=== PATIENT | male | born 1980 | race African-American/Black ===

== ENCOUNTER 2016-11-16 22:07 | Inpatient (IN) | payer MEDICARE, OTHER ==
[~2016-11-16] VITALS: Ht 185.4 cm; Wt 56.2 kg
--- NOTE | ~2016-11-16 | PN ---
Unit #: [id number] #: [id number] Patient: NATALIA KHAN [id number] [facility] [address] [place] [address] [id number] I MR#: [id number] NAME: NATALIA KHAN ROOM: 30 Age: 36 Sex: M Admission Date: 11/17/2016 : 1980 Attending Physician: Ammy Damon M.D. Admitting Physician: Ammy Damon M.D. Primary Care Physician: Primary Care Physician Heather RODGERS NOTES DATE OF SERVICE: 12/07/2016 SUBJECTIVE Mr. Khan is a 36-year-old male, who was seen today and chart was reviewed and case was discussed with the staff. He has been anxious, withdrawn, disorganized, paranoid, delusional, and seclusive to himself, though has not shown any agitation or aggression. He has been taking medications and tolerating them fairly well with no reported side effects. MENTAL STATUS EXAMINATION Young male who was casually dressed with fair personal hygiene, appears to be in no acute distress or discomfort. He was awake and alert with impaired attention and concentration. His mood was anxious with a congruent affect. His speech was slow and restricted in content. His thought processes were disorganized with some looseness of associations. His insight and judgment remain significantly impaired. TREATMENT PLAN 1. We will continue on his current medications and treatment protocol. We will monitor his response to the medication and make further adjustments as needed. 2. We will continue to follow up. Dictated by... Edmar Vega/nerissa TD: 12/07/2016 08:02 JOB #: [id number] Unit #: [id number] #: [id number] Patient: NATALIA KHAN PEARONAN PROGRESS NOTES Page 1 of 1 X Ammy Damon MD PROGRESS NOTE
--- NOTE | ~2016-11-16 | PN ---
Unit #: [id number] #: [id number] Patient: NATALIA KHAN [id number] [facility] [address] [place] [address] [id number] I MR#: [id number] NAME: NATALIA KHAN ROOM: [facility] Age: 36 Sex: M Admission Date: 11/17/2016 : 1980 Attending Physician: Ammy Damon M.D. Admitting Physician: Ammy Damon M.D. Primary Care Physician: Primary Care Physician Heather SCHMIDT PROGRESS NOTES DATE November 23, 2016 DISCUSSION Mr. Khan is a 36-year-old male, who was seen today and chart was reviewed and the case was discussed with the staff. He has been anxious, withdrawn, but has not shown any agitation, irritability, or behavioral problems and has been cooperative with the treatment recommendations and he has been taking the medications and tolerating them fairly well. MENTAL STATUS EXAMINATION Young male, who was casually dressed with fair personal hygiene and appears to be in no acute distress or discomfort. He was awake and alert with intact orientation. His mood is anxious with a congruent affect. He denies any suicidal or homicidal ideations. His insight and judgment remain slightly impaired. TREATMENT PLAN 1. We will continue him on his current medications and treatment protocol, and will monitor his response to the medications, and make further adjustments as needed. 2. We will continue to followup. Dictated by... Edmar Vega/ricco TD: 11/24/2016 11:29 JOB #: [id number] Unit #: [id number] #: [id number] Patient: NATALIA KHAN PEARONAN PROGRESS NOTES Page 1 of 1 X Ammy Damon MD PROGRESS NOTE
--- NOTE | ~2016-11-16 | PN ---
Unit #: [id number] #: [id number] Patient: NATALIA KHAN [id number] [facility] [address] [place] [address] [id number] MR#: [id number] NAME: NATALIA KHAN ROOM: [facility] Age: 36 Sex: M Admission Date: 11/17/2016 : 1980 Attending Physician: Ammy Damon M.D. Admitting Physician: Ammy Damon M.D. Primary Care Physician: Primary Care Physician Heather SCHMIDT PROGRESS NOTES DATE 12/02/2016 DISCUSSION Ms. Khan is a 36-year-old male who was seen today and chart was reviewed and case was discussed with the staff. He has been anxious, restless, withdrawn, rather disorganized though has not shown any agitation or aggression. He has been taking medications and tolerating them fairly well with no reported side effects. MENTAL STATUS EXAMINATION Young male who was casually dressed with fair personal hygiene and appears to be in no acute distress or discomfort. He was awake and alert with impaired attention and concentration. His mood was anxious with congruent affect. His speech is slow and tangential. His thought processes were disorganized with some looseness of associations and flight of ideas. His insight and judgement remains significantly impaired. TREATMENT PLAN 1. Will continue on his current medications and treatment protocol. Will monitor his response to the medications and make further adjustments as needed. 2. Will continue to follow up. Dictated by... Edmar Vega/noemi TD: 12/02/2016 21:28 JOB #: [id number] Unit #: [id number] #: [id number] Patient: NATALIA KHAN PEARONAN PROGRESS NOTES Page 1 of 1 X Ammy Damon MD PROGRESS NOTE
--- NOTE | ~2016-11-16 | PN ---
Unit #: [id number] #: [id number] Patient: NATALIA KHAN [id number] [facility] [address] [place] [address] [id number] I MR#: [id number] NAME: NATALIA KHAN ROOM: P130 Age: 36 Sex: M Admission Date: 11/17/2016 : 1980 Attending Physician: Ammy Damon M.D. Admitting Physician: Ammy Damon M.D. Primary Care Physician: Primary Care Physician Heather SCHMIDT PROGRESS NOTES DATE 12/08/2016 DISCUSSION Mr. Khan is a 36-year-old male who was seen today and chart was reviewed and case was discussed with the staff. He has been anxious, withdrawn and rather seclusive to himself. Meanwhile, he has been cooperative with treatment recommendations and has been taking medications and tolerating them fairly well with no reported side effects. MENTAL STATUS EXAMINATION Young male who was casually dressed with fair personal hygiene and appears to be in no acute distress or discomfort. He was awake and alert with impaired attention and concentration. His mood was anxious with congruent affect. Speech is slow and restricted in content. His thought processes were disorganized with some looseness of associations. His insight and judgement remains significantly impaired. TREATMENT PLAN 1. Will continue him on his current medications and treatment protocol. Will monitor his response to the medications and make further adjustments as needed. 2. Will continue to follow up. Dictated by... Edmar Vega/noemi TD: 12/08/2016 15:21 JOB #: [id number] Unit #: [id number] #: [id number] Patient: NATALIA KHAN PROGRESS NOTES Page 1 of 1 X Ammy Damon MD PROGRESS NOTE
--- NOTE | ~2016-11-16 | PN ---
Unit #: [id number] #: [id number] Patient: NATALIA KHAN [id number] [facility] [address] [place] [address] [id number] I MR#: [id number] NAME: NATALIA KHAN ROOM: [facility] Age: 36 Sex: M Admission Date: 11/17/2016 : 1980 Attending Physician: Ammy Damon M.D. Admitting Physician: Ammy Damon M.D. Primary Care Physician: Primary Care Physician Heather RODGERS NOTES DATE OF SERVICE: 11/18/2016 SUBJECTIVE Mr. Khan is a 36-year-old male with mood disorder and psychosis, who was seen today and chart was reviewed and case was discussed with the staff. He has been anxious, withdrawn, though has not shown any agitation, irritability, and he has been cooperative with treatment recommendation and has been taking medications and tolerating them fairly well with no reported side effects. MENTAL STATUS EXAMINATION Young male who was casually dressed with fair personal hygiene, appears to be in no acute distress or discomfort. He was awake and alert with impaired attention and concentration. His mood was anxious with a congruent affect. His speech was slow and restricted in content. His thought processes were disorganized with some looseness of association. His insight and judgment remain significantly impaired. TREATMENT PLAN 1. We will continue on his current medications and treatment protocol. We will monitor his response to medications and make further adjustments as needed. 2. We will continue to follow up. Dictated by... Edmar Vega/nerissa TD: 11/18/2016 23:48 JOB #: [id number] Unit #: [id number] #: [id number] Patient: NATALIA KHAN PEARONAN PROGRESS NOTES Page 1 of 1 X Ammy Damon MD PROGRESS NOTE
--- NOTE | ~2016-11-16 | PN ---
Unit #: [id number] #: [id number] Patient: NATALIA KHAN [id number] [facility] [address] [place] [address] [id number] I MR#: [id number] NAME: NATALIA KHAN ROOM: [facility] Age: 36 Sex: M Admission Date: 11/17/2016 : 1980 Attending Physician: Ammy Damon M.D. Admitting Physician: Ammy Damon M.D. Primary Care Physician: Primary Care Physician Heather SCHMIDT PROGRESS NOTES DATE November 22, 2016 DISCUSSION Mr. Khan is a 36-year-old male, who was seen today and chart was reviewed and the case was discussed with the staff. He has been anxious, withdrawn, and rather seclusive to himself. He appears to be quite disorganized and unable to carry on a meaningful conversation; however, he has not shown any agitation or aggression and he has been taking the medications and tolerating them fairly well with no reported side effects. MENTAL STATUS EXAMINATION Young male, who was casually dressed with fair personal hygiene and appears to be in no acute distress or discomfort. He was awake and alert with impaired attention and concentration. His mood is anxious with a congruent affect. He denies any suicidal or homicidal ideations. His insight and judgment remain slightly impaired. TREATMENT PLAN 1. We will continue him on his current medications and treatment protocol, and will monitor his response to the medications, and make further adjustments as needed. 2. We will continue to followup. Dictated by... Edmar Vega/ricco TD: 11/23/2016 09:42 JOB #: [id number] Unit #: [id number] #: [id number] Patient: NATALIA KHAN BRAYAN PROGRESS NOTES Page 1 of 1 X Ammy Damon MD PROGRESS NOTE
--- NOTE | ~2016-11-16 | PN ---
Unit #: [id number] #: [id number] Patient: NATALIA KHAN [id number] [facility] [address] [place] [address] [id number] I MR#: [id number] NAME: NATALIA KHAN ROOM: [facility] Age: 36 Sex: M Admission Date: 11/17/2016 : 1980 Attending Physician: Ammy Damon M.D. Admitting Physician: Ammy Damon M.D. Primary Care Physician: Primary Care Physician Heather SCHMIDT PROGRESS NOTES DATE 11/29/2016 DISCUSSION Mr. Khan is a 36-year-old, male who was seen today and chart was reviewed and case was discussed with the staff. He has been anxious, withdrawn, disorganized and rather seclusive to himself with bizarre behavior. Meanwhile, he has been cooperative with the treatment recommendations. He has been taking the medication and tolerating them fairly well with no reported side effects. MENTAL STATUS EXAM Young male who was casually dressed with fair personal hygiene, appears to be in no acute distress or discomfort. He was awake and alert with impaired attention and concentration. His mood was anxious with congruent affect. His speech was slow and tangential. His thought processes were disorganized with some looseness of associations. His insight and judgement remains significantly impaired. TREATMENT PLAN 1. We will continue him on his current medications and treatment protocol. We will monitor his response to the medication and make further adjustments as needed. 2. We will continue to follow up. Dictated by... Edmar Vega/cj TD: 11/30/2016 04:25 JOB #: [id number] Unit #: [id number] #: [id number] Patient: NATALIA KHAN BRAYAN PROGRESS NOTES Page 1 of 1 X Ammy Damon MD PROGRESS NOTE
--- NOTE | ~2016-11-16 | FU ---
[facility] Nutrition Therapy DATE: 11/29/16 Patient: NATALIA BANKS Physician: AFAIRF Address: [address] [place] [address] RD Room/Bed: [address], Zip: [place] [address] Admit Date: 11/17/16 Date of : [birth year] Height: 6 1 Weight: [phone] NUTRITION MONITORING/FOLLOW-UP: Reason: Nutrition follow-up Admitting dx: 36 y/o male admitted with schizophrenia Anthropometrics: no updated weight available Labs: No new labs Meds: Reviewed Assessment: Chart reviewed, events noted. patient has increased nutrient needs r/t underweight status, no updated weight recorded despite RD request at last f/u for new weight documentation. Patient is tolerating regular diet with Ensure ordered at each meal. Has had consistently good appetite and PO intakes per nursing. Sometimes has issues with asking multiple staff members for food and snacks multiple different times requiring redirection. He is already receiving pudding and banana for snacks and large portion entree with lunch & dinner. See nutrition goals and dx below, nutrition dx resolved. No further RD interventions necessary. Dx: Inadequate nutrient intake r/t clinical condition AEB weight loss, low BMI - RESOLVED No new nutrition diagnosis Intervention: No further interventions necessary, see above Monitoring, Evaluation and Goals: 1. PO intake > 50% of meals - MET 2. Maintain weight status - UNMEASURED Recommendations: Continue current dietary regimen and oral supplements, appreciate staff to encourage oral intake. Please obtain updated weight and enter in [employer] for monitoring purposes. Please notify RD if weight is trending down and consult with any further nutritional needs. Status: Mild nutrition risk Respectfully, [facility] Nutrition Therapy DATE: 11/29/16 Patient: NATALIA BANKS Physician: AFAIRF Address: [address] [place] [address] RD Room/Bed: [address], Zip: [place] [address] Admit Date: 11/17/16 Date of : [birth year] Height: 6 1 Weight: [phone] Ksuum Patel, CLEMENT, LD [facility] cc: client file
--- NOTE | ~2016-11-16 | PN ---
Unit #: [id number] #: [id number] Patient: NATALIA BANKS [id number] [facility] [address] [place] [address] [id number] I MR#: [id number] NAME: NATALIA BANKS ROOM: 30 Age: 37 Sex: M Admission Date: 11/17/2016 : 1980 Attending Physician: Ammy Damon M.D. Admitting Physician: Ammy Damon M.D. Primary Care Physician: Primary Care Physician Heather SCHMIDT PROGRESS NOTES DATE 11/27/2016 DISCUSSION Mr. Devine is a 36-year-old, male who was seen today and chart was reviewed and case was discussed with the staff. He has been anxious, withdrawn and rather seclusive to himself. Meanwhile, he has been cooperative with treatment recommendation. He has been taking the medication and tolerating them fairly well with no reported side effects. MENTAL STATUS EXAM Young male who was casually dressed with fair personal hygiene, appears to be in no acute distress or discomfort. He was awake and alert with impaired attention and concentration. His mood was anxious with congruent affect. His speech was slow and restricted in content. His thought processes were disorganized with some looseness of associations and flight of ideas. His insight and judgement remains significantly impaired. TREATMENT PLAN 1. We will continue him on his current medications and treatment protocol. We will monitor his response to the medication and make further adjustments as needed. 2. We will continue to follow up. Dictated by... Edmar Vega/cj TD: 11/28/2016 03:18 JOB #: [id number] Unit #: [id number] #: [id number] Patient: NATALIA BANKS PEARONAN PROGRESS NOTES Page 1 of 1 X Ammy Damon MD PROGRESS NOTE
--- NOTE | ~2016-11-16 | PN ---
Unit #: [id number] #: [id number] Patient: NATALIA KHAN [id number] [facility] [address] [place] [address] [id number] I MR#: [id number] NAME: NATALIA KHAN ROOM: [facility] Age: 36 Sex: M Admission Date: 11/17/2016 : 1980 Attending Physician: Ammy Damon M.D. Admitting Physician: Ammy Damon M.D. Primary Care Physician: Primary Care Physician Heather SCHMIDT PROGRESS NOTES DATE November 26, 2016 DISCUSSION Mr. Khan is a 36-year-old male, who was seen today and chart was reviewed and the case was discussed with the staff. He has been anxious, withdrawn, disorganized, and rather seclusive to himself. Meanwhile, he has been cooperative with the treatment recommendations and he has been taking the medications and tolerating them fairly well with no reported side effects. MENTAL STATUS EXAMINATION Young white male, who was casually dressed with fair personal hygiene and appears to be in no acute distress or discomfort. He was awake and alert with impaired attention and concentration. His mood is anxious with a congruent affect. His speech is slow and restricted in content. His thought processes are disorganized with some looseness of associations. His insight and judgment remain significantly impaired. TREATMENT PLAN 1. We will continue him on his current medications and treatment protocol, and will monitor his response to the medications, and make further adjustments as needed. 2. We will continue to followup. Dictated by... Edmar Vega/ricco TD: 11/26/2016 10:30 JOB #: [id number] Unit #: [id number] #: [id number] Patient: NATALIA KHAN PROGRESS NOTES Page 1 of 1 X Ammy Damon MD PROGRESS NOTE
--- NOTE | ~2016-11-16 | A ---
[facility] Nutrition Therapy DATE: 11/17/16 Patient: NATALIA BANKS Physician: ZORAIDA Address: [address] [place] [address] Room/Bed: [address], Zip: [place] [address] Admit Date: 11/17/16 Date of : [birth year] Height: 6 1 Weight: 123 56.726655 NUTRITIONAL ASSESSMENT: REASON: LOW BMI (16.4) PATIENT ADMITTED FOR PSYCHOSIS, A/V HALLUCINATIONS, HI, AND DELUSIONS PMH: TRAUMATIC BRAIN INJURY, CONTRACTED EXTREMITIES Anthropometrics: HT: 6'1", WT: 124#, BMI: 16.4 Labs: 11/17/16- NUTRITION LABS WNL Meds: MARGY, RAN, LAISHA Assessment: PATIENT IS A 36 Y/O MALE ADMITTED FOR PSYCHOSIS, A/V HALLUCINATIONS, HI, AND DELUSIONS. PATIENT IS DISABLED, LIVES WITH HIS MOTHER AND SISTER, AND DENIES ANY SUBSTANCE ABUSE. IT IS NOTED THAT PATIENT IS HARD TO UNDERSTAND, HAS MEMORY PROBLEMS, AND IS A POOR HISTORIAN. PER NEEDS ASSESSMENT PATIENT AND HIS MOTHER STATED A POOR APPETITE WITH A 40# WEIGHT LOSS OVER LAST SEVERAL MONTHS WITH HIS WEIGHT DROPPING FROM 160# TO 120# D/T NOT EATING. PATIENT BELIEVES HE HAS A TAPE WORM AND THAT PEOPLE ARE SPITTING IN HIS FOOD OR POISONING IT. THERE ARE NO GI OR SKIN ISSUES NOTED ATT. PATIENT IS ON A REGULAR DIET WITH ENSURE TID, LARGE PORTION ENTREES, AND HE RECEIVES SEALED FOOD ITEMS ON HIS TRAY (I.E. A BANANA, PUDDING, CHIPS). CURRENT MEDICATIONS MAY CAUSE WEIGHT GAIN, WHICH IS DESIRED. Dx: INADEQUATE NUTRIENT INTAKE R/T CURRENT CONDITION AEB WEIGHT LOSS, DECREASED APPETITE, LOW BMI, REFUSAL TO EAT Intervention: REGULAR DIET, SUPPLEMENTATION, MEDS PER MD, PSYCH Monitoring, Evaluation and Goals: 1. ADEQUATE PO INTAKES >50% OF MEALS 2. PREVENT, CORRECT MICRO/MACRO NUTRIENT DEFICIENCIES 3. WEIGHT; PROMOTE A STEADY WEIGHT GAIN TOWARDS A HEALTHY BMI OF 19-25, PREVENT FURTHER WEIGHT LOSS MONITOR: WEIGHTS, LABS, PO/FLUID INTAKES Recommendations: 1. CONTINUE REGULAR DIET WITH LARGE ENTREES AND ENSURE TID TOLERATED. OFFER SNACKS BETWEEN MEALS AND PRE-PACKAGED FOOD ITEMS D/T CURRENT PSYCHOSIS AND NEED FOR WEIGHT GAIN. PATIENT ADMITTED TODAY SO CURRENT PO INTAKES ARE UNKNOWN AND IT IS UNCLEAR IF PATIENT WILL [facility] Nutrition Therapy DATE: 11/17/16 Patient: NATALIA DARREN Physician: ZORAIDA Address: [facility] Room/Bed: P131-1 [facility], Zip: [place] [address] Admit Date: 11/17/16 Date of : [birth year] Height: 6 1 Weight: 123 56.787946 DRINK ENSURE. 2. ENCOURAGE ADEQUATE PO AND FLUID INTAKES 3. OBTAIN WEIGHTS ROUTINELY (EVERY 3-4 DAYS) 4. CONSULT PSYCH SERVICES FOR PATIENT'S PSYCHOSIS AND AVERSION TO FOOD ITEMS. RD TO F/U PER PROTOCOL AND PRN R/T PATIENT MODERATELY COMPROMISED Respectfully, GREGORIO MERCADO, RD, LD Food and Nutritional Services [facility] cc: client file
--- NOTE | ~2016-11-16 | DS ---
Unit #: [id number] #: [id number] Patient: NATALIA KHAN [id number] [facility] [address] [place] [address] [id number] MR#: [id number] NAME: NATALIA KHAN ROOM: P130 Age: 36 Sex: M Admission Date: 11/17/2016 : 1980 Discharge Date: Attending Physician: Ammy Damon M.D. Primary Care Physician: Primary Care Physician No DISCHARGE SUMMARY IDENTIFYING DATA Mr. Khan is a 36-year-old single disabled male, who is a resident of [place], [place], and was transferred to us in an acute psychotic state. DISCHARGE DIAGNOSES Psychiatric: Chronic paranoid schizophrenia. Medical: None. Stressors: Mild psychosocial stressors. HISTORY OF PRESENT ILLNESS Please see initial psychiatric evaluation for details. PAST PSYCHIATRIC HISTORY Please see initial psychiatric evaluation for details. PAST MEDICAL HISTORY Please see initial psychiatric evaluation for details. HOSPITAL COURSE The patient was admitted to the adult psychiatric unit at [facility] [place] and was oriented to the hospital environment. Routine p.r.n. medications were initiated, and he was started back on his home medication as medications were adjusted and he was seen to be acutely psychotic with bizarre behavior, paranoia, and delusional behavior, particularly somatic delusion that his body was decomposing and he apparently has not been eating and has lost significant amount of body weight and as such, was started on a combination of Zyprexa and Remeron to help with psychosis and stimulate his appetite. Medications were gradually titrated. He was seen to be polite and pleasant and rather seclusive to himself and was not causing any trouble and was taking the medications regularly, though had rather slow response to medications. However, he was able to show a therapeutic response and no agitation or aggression was noticed and he was not seen to be a danger to self or anyone else, and as such, it was decided that he will be discharged home and will continue treatment on an outpatient basis. DISCHARGE MEDICATIONS Remeron 30 mg at bedtime for depression, Trileptal 300 mg b.i.d. for mood, Zyprexa 10 mg b.i.d. for mood, Cogentin 2 mg b.i.d. for EPS. DISCHARGE CONDITION Stable. Unit #: [id number] #: [id number] Patient: NATALIA KHAN PROGNOSIS Fair. Dictated by... Edmar Vega/nerissa TD: 12/09/2016 07:18 JOB #: [id number] DISCHARGE SUMMARY Page 1 of 1 X Ammy Damon MD X DISCHARGE SUMMARY
--- NOTE | ~2016-11-16 | PN ---
Unit #: [id number] #: [id number] Patient: NTAALIA KHAN [id number] [facility] [address] [place] [address] [id number] MR#: [id number] NAME: NATALIA KHAN ROOM: 31 Age: 36 Sex: M Admission Date: 11/17/2016 : 1980 Attending Physician: Ammy Damon M.D. Admitting Physician: Ammy Damon M.D. Primary Care Physician: Primary Care Physician Heather SCHMIDT PROGRESS NOTES DATE 11/24/2016 DISCUSSION Mr. Khan is a 36-year-old, male who was seen today and chart was reviewed and case was discussed with the staff. He has anxious, withdrawn though seclusive to himself. Meanwhile, he has been cooperative with treatment recommendations. He has been taking medications and tolerating them fairly well with no reported side effects. MENTAL STATUS EXAM Young male who was casually dressed with fair personal hygiene, appears to be in no acute distress or discomfort. He was awake and alert on interaction with intact orientation. His mood was anxious with congruent affect. He denies any suicidal or homicidal ideation. His insight and judgement remains slightly impaired. TREATMENT PLAN 1. We will continue him on his current medications and treatment protocol. We will monitor his response to the medication and make further adjustments as needed. 2. We will continue to follow up. Dictated by... Edmar Vega/cj TD: 11/24/2016 20:39 JOB #: [id number] Unit #: [id number] #: [id number] Patient: NATALIA KHAN PEARONAN PROGRESS NOTES Page 1 of 1 X Ammy Damon MD PROGRESS NOTE
--- NOTE | ~2016-11-16 | PN ---
Unit #: [id number] #: [id number] Patient: NATALIA KHAN [id number] [facility] [address] [place] [address] [id number] MR#: [id number] NAME: NATALIA KHAN ROOM: 31 Age: 36 Sex: M Admission Date: 11/17/2016 : 1980 Attending Physician: Ammy Damon M.D. Admitting Physician: Ammy Damon M.D. Primary Care Physician: Primary Care Physician Heather RODGERS NOTES DATE November 19, 2016 DISCUSSION Mr. Khan is a 36-year-old male, who was seen today and chart was reviewed and the case was discussed with the staff. He has been anxious, withdrawn, and rather seclusive to himself, meanwhile, he remains disorganized and unkept, and unable to carry on meaningful conversation and has not been eating very much and has been difficult to be redirected; however, he has not shown any aggression. MENTAL STATUS EXAMINATION Young male, who was casually dressed with marginal personal hygiene and appears to be in no acute distress or discomfort. He was awake and alert with impaired attention and concentration. His mood is anxious with a congruent affect. His speech is slow and restricted in content. His thought processes are disorganized with some looseness of associations and paranoid ideations. His insight and judgment remain significantly impaired. TREATMENT PLAN 1. We will continue him on his current medications and treatment protocol, and will monitor his response to the medications, and make further adjustments as needed. 2. We will continue to followup. Dictated by... Edmar Vega/ricco TD: 11/19/2016 11:59 JOB #: [id number] Unit #: [id number] #: [id number] Patient: NATALIA KHAN BRAYAN PROGRESS NOTES Page 1 of 1 X Ammy Damon MD PROGRESS NOTE
--- NOTE | ~2016-11-16 | PN ---
Unit #: [id number] #: [id number] Patient: NATALIA KHAN [id number] [facility] [address] [place] [address] [id number] MR#: [id number] NAME: NATALIA KHAN ROOM: [facility] Age: 36 Sex: M Admission Date: 11/17/2016 : 1980 Attending Physician: Ammy Damon M.D. Admitting Physician: Ammy Damon M.D. Primary Care Physician: Primary Care Physician Heather RODGERS NOTES DATE November 30, 2016 DISCUSSION Mr. Khan is a 36-year-old male, with mood disorder, and psychosis, who was seen today and chart was reviewed and the case was discussed with the staff. He has been anxious, withdrawn, and rather seclusive to himself, and has been exhibiting bizarre behavior with persistent paranoid delusions stating that his body is decaying and takes his shirt off and starts showing different parts of the body stating that his body is decomposing and decaying. Meanwhile, he has been taking the medications and tolerating them fairly well with no reported side effects. MENTAL STATUS EXAMINATION Young male, who was casually dressed with fair personal hygiene and appears to be in no acute distress or discomfort. He was awake and alert with impaired attention and concentration. His mood was anxious with a congruent affect. His speech is slow and tangential. His thought processes are disorganized with some looseness of associations and flight of ideas. His insight and judgment remain significantly impaired. TREATMENT PLAN 1. We will continue him on his current medications and treatment protocol, and will monitor his response to the medications, and make further adjustments as needed. 2. We will continue to followup. Dictated by... Edmar Vega/ricco TD: 12/01/2016 08:34 JOB #: [id number] Unit #: [id number] #: [id number] Patient: NATALIA KHAN PEARONAN PROGRESS NOTES Page 1 of 1 X Ammy Damon MD X PROGRESS NOTE
--- NOTE | ~2016-11-16 | PN ---
Unit #: [id number] #: [id number] Patient: NATALIA KHAN [id number] [facility] [address] [place] [address] [id number] I MR#: [id number] NAME: NATALIA KHAN ROOM: [facility] Age: 36 Sex: M Admission Date: 11/17/2016 : 1980 Attending Physician: Ammy Damon M.D. Admitting Physician: Ammy Damon M.D. Primary Care Physician: Primary Care Physician Heather RODGERS NOTES DATE November 21, 2016 DISCUSSION Mr. Khan is a 36-year-old male, who was seen today and chart was reviewed and the case was discussed with the staff. He has been anxious, withdrawn, and seclusive to himself, meanwhile he has been cooperative with the treatment recommendations and he has been taking the medications and tolerating them fairly well with no reported side effects. MENTAL STATUS EXAMINATION Young male, who was casually dressed with fair personal hygiene and appears to be in no acute distress or discomfort. He was awake and alert with impaired attention and concentration. His mood is anxious with a congruent affect. He denies any suicidal or homicidal ideations. His insight and judgment remain slightly impaired. TREATMENT PLAN 1. We will continue him on his current medications and treatment protocol, and will monitor his response to the medications, and make further adjustments as needed. 2. We will continue to followup. Dictated by... Edmar Vega/ricco TD: 11/22/2016 11:37 JOB #: [id number] Unit #: [id number] #: [id number] Patient: NATALIA KHAN BRAYAN PROGRESS NOTES Page 1 of 1 X Ammy Damon MD PROGRESS NOTE
--- NOTE | ~2016-11-16 | PN ---
Unit #: [id number] #: [id number] Patient: NATALIA KHAN [id number] [facility] [address] [place] [address] [id number] I MR#: [id number] NAME: NATALIA KHAN ROOM: [facility] Age: 36 Sex: M Admission Date: 11/17/2016 : 1980 Attending Physician: Ammy Damon M.D. Admitting Physician: Ammy Damon M.D. Primary Care Physician: Primary Care Physician Heather RODGERS NOTES DATE November 25, 2016 DISCUSSION Mr. Khan is a 36-year-old male, with mood disorder, and psychosis, who was seen today and chart was reviewed and the case was discussed with the staff. He has been anxious, withdrawn, and rather seclusive to himself. Meanwhile, he has been cooperative with the treatment recommendations and he has been taking the medications and tolerating them fairly well with no reported side effects. MENTAL STATUS EXAMINATION Young male, who was casually dressed with fair personal hygiene and appears to be in no acute distress or discomfort. He was awake and alert on interaction with intact orientation. His mood is anxious with a congruent affect. He denies any suicidal or homicidal ideations. His insight and judgment remain slightly impaired. TREATMENT PLAN 1. We will continue him on his current medications and treatment protocol, and will monitor his response to the medications, and make further adjustments as needed. 2. We will continue to followup. Dictated by... Edmar Vega/ricco TD: 11/25/2016 12:57 JOB #: [id number] Unit #: [id number] #: [id number] Patient: NATALIA KHAN PEARONAN PROGRESS NOTES Page 1 of 1 X Ammy Damon MD PROGRESS NOTE
--- NOTE | ~2016-11-16 | PN ---
Unit #: [id number] #: [id number] Patient: NATALIA KHAN [id number] [facility] [address] [place] [address] [id number] I MR#: [id number] NAME: NATALIA KHAN ROOM: 31 Age: 36 Sex: M Admission Date: 11/17/2016 : 1980 Attending Physician: Ammy Damon M.D. Admitting Physician: Ammy Damon M.D. Primary Care Physician: Primary Care Physician Heather SCHMIDT PROGRESS NOTES DATE 11/20/2016 DISCUSSION Mr. Khan is a 36-year-old male who was seen today and chart was reviewed and case was discussed with the staff. He has been anxious, withdrawn and rather seclusive to himself. Meanwhile, he has been cooperative with treatment recommendations and has been taking medications and tolerating them fairly well with no reported side effects. MENTAL STATUS EXAMINATION Young male who was casually dressed with fair personal hygiene and appears to be in no acute distress or discomfort. He was awake and alert with impaired attention and concentration. His mood was anxious with congruent affect. His speech is slow and restricted in content. His thought processes were with looseness of associations. His insight and judgement remains significantly impaired. TREATMENT PLAN 1. Will continue on his current treatment protocol. Will monitor his response and make further adjustments as needed. 2. Will continue to follow up. Dictated by... Edmar Vega/noeim TD: 11/20/2016 17:33 JOB #: [id number] Unit #: [id number] #: [id number] Patient: NATALIA KHAN PEARONAN PROGRESS NOTES Page 1 of 1 X Ammy Damon MD PROGRESS NOTE
--- NOTE | ~2016-11-16 | PN ---
Unit #: [id number] #: [id number] Patient: NATALIA KHAN [id number] [facility] [address] [place] [address] [id number] I MR#: [id number] NAME: NATALIA KHAN ROOM: P130 Age: 36 Sex: M Admission Date: 11/17/2016 : 1980 Attending Physician: Ammy Damon M.D. Admitting Physician: Ammy Damon M.D. Primary Care Physician: Primary Care Physician Heather SCHMIDT PROGRESS NOTES DATE December 05, 2016 DISCUSSION Mr. Khan is a 36-year-old male, who was seen today and chart was reviewed and the case was discussed with the staff. He has been anxious, withdrawn, and rather seclusive to himself. He has been taking the medications and tolerating them fairly well. MENTAL STATUS EXAMINATION Young male, who was casually dressed with fair personal hygiene and appears to be in no acute distress or discomfort. He was awake and alert on interaction with intact orientation. His mood is anxious with a congruent affect. His speech is slow and tangential. His thought processes are disorganized with some looseness of associations. His insight and judgment remain significantly impaired. TREATMENT PLAN 1. We will continue him on his current medications and treatment protocol, and will monitor his response to the medications, and make further adjustments as needed. 2. We will continue to followup. Dictated by... Edmar Vega/ricco TD: 12/06/2016 10:57 JOB #: [id number] Unit #: [id number] #: [id number] Patient: NATALIA KHAN PROGRESS NOTES Page 1 of 1 X Ammy Damon MD PROGRESS NOTE
--- NOTE | ~2016-11-16 | PN ---
Unit #: [id number] #: [id number] Patient: NATALIA KHAN [id number] [facility] [address] [place] [address] [id number] I MR#: [id number] NAME: NATALIA KHAN ROOM: 30 Age: 36 Sex: M Admission Date: 11/17/2016 : 1980 Attending Physician: Ammy Damon M.D. Admitting Physician: Ammy Damon M.D. Primary Care Physician: Primary Care Physician Heather RODGERS NOTES DATE 12/06/2016 DISCUSSION Mr. Khan is a 36-year-old, male who was seen today and chart was reviewed and case was discussed with the staff. He has been anxious, withdrawn though has not shown any agitation and has been cooperative with treatment recommendation and has been coming to therapy groups though has been still exhibiting some paranoia and delusional behavior though no agitation or aggression has been noted. MENTAL STATUS EXAM Young male who was casually dressed with fair personal hygiene, appears to be in no acute distress or discomfort. He was awake and alert with impaired attention and concentration. His mood was anxious with congruent affect. His speech was slow and restricted in content. His thought processes were disorganized with some looseness of associations, paranoid ideations and delusional behavior particularly (1)____ delusions. His insight and judgement remains significantly impaired. TREATMENT PLAN 1. We will continue him on his current medications and treatment protocol. We will monitor his response to the medication and make further adjustments as needed. 2. We will continue to follow up. Dictated by... Edmar Vega/cj TD: 12/07/2016 05:29 JOB #: [id number] Unit #: [id number] #: [id number] Patient: NATALIA KHAN BRAYAN PROGRESS NOTES Page 1 of 1 X Ammy Damon MD PROGRESS NOTE
--- NOTE | ~2016-11-16 | PN ---
Unit #: [id number] #: [id number] Patient: NATALIA KHAN [id number] [facility] [address] [place] [address] [id number] I MR#: [id number] NAME: NATALIA KHAN ROOM: 31 Age: 36 Sex: M Admission Date: 11/17/2016 : 1980 Attending Physician: Ammy Damon M.D. Admitting Physician: Ammy Damon M.D. Primary Care Physician: Primary Care Physician Heather SCHMIDT PROGRESS NOTES DATE 12/01/2016 DISCUSSION Mr. Khan is a 36-year-old male who was seen today and chart was reviewed and case was discussed with the staff. He has been anxious, withdrawn, rather seclusive to himself. Meanwhile, he has been cooperative with treatment recommendations and has been taking medications and tolerating them fairly well with no reported side effects. MENTAL STATUS EXAMINATION Young male who was casually dressed with fair personal hygiene and appears to be in no acute distress or discomfort. He was awake and alert with impaired attention and concentration. His mood was anxious with congruent affect. He denies any suicidal or homicidal ideation. His insight and judgement remains slightly impaired. TREATMENT PLAN 1. Will continue him on his current medications and treatment protocol and will monitor his response to the medications and make further adjustments as needed. 2. Will continue to follow up. Dictated by... Ammy Damon M.D. IAA/noemi TD: 12/01/2016 17:27 JOB #: [id number] Unit #: [id number] #: [id number] Patient: NATALIA KHAN PEARONAN PROGRESS NOTES Page 1 of 1 X Ammy Damon MD PROGRESS NOTE
--- NOTE | ~2016-11-16 | PN ---
Unit #: [id number] #: [id number] Patient: NATALIA KHAN [id number] [facility] [address] [place] [address] [id number] I MR#: [id number] NAME: NATALIA KHAN ROOM: [facility] Age: 36 Sex: M Admission Date: 11/17/2016 : 1980 Attending Physician: Ammy Damon M.D. Admitting Physician: Ammy Damon M.D. Primary Care Physician: Primary Care Physician Heather RODGERS NOTES DATE OF SERVICE 12/03/2016 DISCUSSION Mr. Khan is a 36-year-old male who was seen today. Chart was reviewed and case was discussed with the staff. He has been anxious, withdrawn, and rather seclusive to himself. Meanwhile, he has been cooperative with treatment recommendations and has been taking the medications and tolerating them fairly well with no reported side effects. MENTAL STATUS EXAMINATION Young male who is casually dressed with fair personal hygiene, appears to be in no acute distress or discomfort. He was awake and alert with impaired attention and concentration. His mood is anxious with congruent affect. His speech is slow and restricted in content. He denies any suicidal or homicidal ideations. His insight and judgment remain slightly impaired. TREATMENT PLAN 1. We will continue him on his current medications and treatment protocol, and we will monitor his response to the medications and make further adjustments as needed. 2. We will continue to follow up. Dictated by... Ammy Damon M.D. IAA/bzg TD: 12/03/2016 11:18 JOB #: [id number] Unit #: [id number] #: [id number] Patient: NATALIA KHAN PEARONAN PROGRESS NOTES Page 1 of 1 X Ammy Damon MD PROGRESS NOTE
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
--- NOTE | ~2016-11-16 | PN ---
Unit #: [id number] #: [id number] Patient: NATALIA KHAN [id number] [facility] [address] [place] [address] [id number] I MR#: [id number] NAME: NATALIA KHAN ROOM: [facility] Age: 36 Sex: M Admission Date: 11/17/2016 : 1980 Attending Physician: Ammy Damon M.D. Admitting Physician: Ammy Damon M.D. Primary Care Physician: Primary Care Physician Heather SCHMIDT PROGRESS NOTES DATE OF SERVICE 11/28/2016 DISCUSSION Mr. Khan is a 36-year-old white male who was seen today. Chart was reviewed and case was discussed with the staff. He has been anxious, withdrawn, and rather seclusive to himself. Meanwhile, he has been cooperative with the treatment recommendations and has been taking the medications and tolerating them fairly well with no reported side effects. MENTAL STATUS EXAMINATION Young male who is casually dressed with fair personal hygiene, appears to be in no acute distress or discomfort. He was awake and alert on interaction with intact orientation. His mood is anxious with congruent affect. Speech is slow and restricted in content. His thought processes were disorganized with some looseness of associations and paranoid ideations. His insight and judgment remain significantly impaired. TREATMENT PLAN 1. We will continue him on his current medications and treatment protocol. We will monitor his response to the medications and make further adjustments as needed. 2. We will continue to follow up. Dictated by... Edmar Vega/maldonado TD: 11/29/2016 10:46 JOB #: [id number] Unit #: [id number] #: [id number] Patient: NATALIA KHAN PEARONAN PROGRESS NOTES Page 1 of 1 X Ammy Damon MD PROGRESS NOTE
--- NOTE | ~2016-11-16 | PN ---
Unit #: [id number] #: [id number] Patient: NATALIA KHAN [id number] [facility] [address] [place] [address] [id number] MR#: [id number] NAME: NATALIA KHAN ROOM: P130 Age: 36 Sex: M Admission Date: 11/17/2016 : 1980 Attending Physician: Ammy Damon M.D. Admitting Physician: Ammy Damon M.D. Primary Care Physician: Primary Care Physician Heather RODGERS NOTES DATE 12/04/2016 DISCUSSION Mr. Khan is a 36-year-old, male who was seen today and chart was reviewed and case was discussed with the staff. He has been anxious, withdrawn and rather seclusive to himself. Meanwhile, he has been cooperative with treatment recommendations. He has been taking medications and tolerating them fairly well with no reported side effects. MENTAL STATUS EXAM Young male who was casually dressed with fair personal hygiene, appears to be in no acute distress or discomfort. He was awake and alert with intact orientation. His mood was anxious with congruent affect. His speech was slow and restricted in content. His thought processes were disorganized with some looseness of associations. His insight and judgement remains significantly impaired. TREATMENT PLAN 1. We will continue him on his current medications and treatment protocol. We will monitor his response to the medication and make further adjustments as needed. 2. We will continue to follow up. Dictated by... Edmar Vega/cj TD: 12/06/2016 02:32 JOB #: [id number] Unit #: [id number] #: [id number] Patient: NATALIA KHAN BRAYAN PROGRESS NOTES Page 1 of 1 X Ammy Damon MD PROGRESS NOTE
--- NOTE | ~2016-11-16 | FU ---
[facility] Nutrition Therapy DATE: 11/22/16 Patient: NATALIA DARREN Physician: AFAIRF Address: [address] [place] [address] RD Room/Bed: [address], Zip: [place] [address] Admit Date: 11/17/16 Date of : [birth year] Height: 6 1 Weight: [id number] NUTRITION MONITORING/FOLLOW-UP: Reason: NUTRITION F/U- LOW BMI (16.4) Anthropometrics: HT: 6'1", WT: 124# (NO NEW WEIGHTS) Labs: NO NEW LABS Meds: REMERON, SAPHRIS, COGENTIN Assessment: PATIENT CONTINUES ON A REGULAR DIET WITH LARGE PORTION ENTREES, ENSURE TID, AND SCHEDULED SNACKS. NURSING REPORTS CONSISTENTLY GOOD PO INTAKES, PATIENT HAS BEEN EATING WHAT IS ON HIS TRAY, AND HE HAS BEEN DRINKING HIS ENSURES. PATIENT NO LONGER REQUIRES SEALED FOOD ITEMS ON HIS TRAY. THERE HAVE BEEN NO NEW WEIGHTS RECORDED. WILL REQUEST A NEW WEIGHT FROM NURSING. PATIENT HAS NOT BEEN EXHIBITING ANY AGGRESSION. PATIENT CONTINUES ON REMERON AND PSYCH MEDS. Dx: INADEQUATE NUTRIENT INTAKE R/T CURRENT CONDITION AEB WEIGHT LOSS, DECREASED APPETITE, LOW BMI, REFUSAL TO EAT - IMPROVED! PATIENT HAS HAD GOOD PO INTAKES Intervention: REGULAR DIET, SUPPLEMENTATION, MEDS PER MD, PSYCH Monitoring, Evaluation and Goals: 1. ADEQUATE PO INTAKES >50% OF MEALS - MEETING GOAL 2. PREVENT, CORRECT MICRO/MACRO NUTRIENT DEFICIENCIES - NO NEW LABS 3. WEIGHT; PROMOTE A STEADY WEIGHT GAIN TOWARDS A HEALTHY BMI OF 19-25, PREVENT FURTHER WEIGHT LOSS - UNKNOWN: NO NEW WEIGHT FROM NURSING, HOWEVER PATIENT HAS GOOD PO INTAKES MONITOR; WEIGHTS, LABS, PO/FLUID INTAKES Recommendations: 1. CONTINUE REGULAR DIET WITH LARGE ENTREES, ENSURE TID, AND SCHEDULED SNACKS. 2. CONTINUE TO ENCOURAGE ADEQUATE PO AND FLUID INTAKES 3. OBTAIN WEIGHTS ROUTINELY!!! (EVERY 3-4 DAYS) Status: PATIENT MILD/MODERATELY NUTRITIONALLY COMPROMISED. WILL CONTINUE TO F/U PER PROTOCOL AND PRN Respectfully, [facility] Nutrition Therapy DATE: 11/22/16 Patient: KARENRENETTA DARREN Physician: AFAIRF Address: [address] [place] [address] RD Room/Bed: [address], Zip: [place] [address] Admit Date: 11/17/16 Date of : [birth year] Height: 6 1 Weight: [id number], LD [facility] cc: client file
--- NOTE | ~2016-11-16 | HP ---
Unit #: [id number] #: [id number] Patient: ANNA BANKS [id number] [place] [address] [id number] MR#: [id number] NAME: ANNA BANKS ROOM: P131 Age: 36 Sex: M Admission Date: 11/17/2016 : 1980 Attending Physician: Ammy Damon M.D. Admitting Physician: Ammy Damon M.D. Primary Care Physician: Primary Care Physician No HISTORY AND PHYSICAL HISTORY OF PRESENT ILLNESS Anna is a 36 year old admitted to [address] [place] [address] with psychotic behavior. PAST MEDICAL HISTORY 1. History of seizures as a child. 2. History of CHI at age 1. PAST SURGICAL HISTORY Nothing reported. ALLERGIES No known drug allergies. SOCIAL HISTORY He denies cigarettes, alcohol and illicit drug use. FAMILY HISTORY Medically noncontributory. REVIEW OF SYSTEMS He does not answer questions appropriately. There are no reports of nausea, vomiting or diarrhea. He has had no cough or increased temperature. CURRENT MEDICATIONS 1. Remeron 30 mg q.h.s. 2. Trileptal 300 mg b.i.d. 3. Saphris 10 mg b.i.d. 4. Cogentin 2 mg t.i.d. 5. Milk of Magnesia p.r.n. 6. Maalox p.r.n. 7. Tylenol p.r.n. PHYSICAL EXAMINATION GENERAL: Alert, very thin, in no apparent distress. VITAL SIGNS: Blood pressure 120/70, heart rate 80, respirations 16, temperature 98.6. WEIGHT: 124. HEIGHT: 6 feet 1 inch. SKIN: Warm and dry without rash or lesion. HEENT: Normocephalic. TMs not viewed. Oral and nasal passages clear. Conjunctivae clear. PERRLA. EOMs intact. NECK: Supple without lymphadenopathy or thyromegaly. Unit #: [id number] #: [id number] Patient: ANNA BANKS HEART: Regular rate and rhythm without murmur. LUNGS: Clear. ABDOMEN: Soft, nontender. : Not done. EXTREMITIES: No evidence of cyanosis, clubbing or edema. Moves all without focal deficit. NEUROLOGICAL: Grossly within normal limits. Cranial Nerves: II: Visual puga are intact. III, IV AND : Extraocular movements are intact. Pupils are equal, round and reactive to light. V: Facial sensation is grossly normal. VII: Facial movements and expression are normal. VIII: Auditory acuity grossly intact. IX, X: Uvula is midline. Phonation is normal. XI: Patient shrugs shoulders and turns head normally. XII: Tongue protrudes in the midline. Sensory and Motor Function: Sensory and motor sensation is grossly normal. Motor: moves all extremities well. Coordination: Gait is normal. Deep Tendon Reflexes: Intact. IMPRESSION Psychiatric admission. RECOMMENDATIONS PSYCHIATRIC: Per psychiatrist. MEDICAL: See no contraindication to participate in facility's activities. MEDICAL PROGNOSIS Good. MEDICAL CONDITION Stable. Dictated by... April Hobbs P.A.-C. for Edmar Mayorga/noemi TD: 11/17/2016 18:51 JOB #: [id number] HISTORY AND PHYSICAL Page 1 of 1 X April Hobbs X HISTORY AND PHYSICAL
[~2016-11-16 22:07] MED LIST: ABILIFY PO; AUGMENTIN PO; GEODAN PO; LITHIUM PO; MOBIC PO; PALIPERIDONE PO; PRILOSEC PO; SEROQUEL PO; ZOFRAN PO; ZOLOFT PO; ZYPREXA PO
[2016-11-17 09:41] LABS: BASOPHIL% 0.8 % (0-2.5); EOSINOPHIL# 0.1 X10e3 (0-0.7); EOSINOPHIL% 1.6 % (0.0-7.0); HEMATOCRIT 36.1 % (38.0-50.0); HEMOGLOBIN 12.5 gm/dL (13.0-16.0); LYMPHOCYTE# 1.5 X10e3 (1.0-3.5); LYMPHOCYTE% 43.5 % (17.0-45.0); MEAN CORPUSCULAR HGB CONC 34.6 g/dL (30-36); MEAN PLATELET VOLUME 9.4 FL (6.5-11.5); MONOCYTE# 0.3 X10e3 (0-1.0); MONOCYTE% 8.7 % (3.0-12.0); NEUTROPHIL# 1.6 X10e3 (1.5-7.1); NEUTROPHIL% 45.4 % (40-75); PLATELET COUNT 162 X10e3 (140-420); RED BLOOD COUNT 4.29 X10e (3.90-5.60); RED CELL DISTRIBUTION WIDTH 13.5 % (11.0-15.5); WHITE BLOOD COUNT 3.5 X10e3 (4.0-10.5)
[2016-11-17 09:44] LABS: DIFF IND NO
[2016-11-17 09:58] LABS: ALBUMIN SERUM 3.7 g/dL (3.5-5.0); BILIRUBIN,TOTAL 0.1 mg/dL (0.2-2.0); BUN/CREATININE RATIO 16.36; CALCIUM SERUM 8.8 mg/dL (8.4-10.2); CREATININE SERUM 1.1 mg/dL (0.6-1.4); GLOM FILT RATE Estimated 98.9 mL/min (>60); PROTEIN TOTAL SERUM 6.3 g/dL (6.0-8.3)
[2016-12-06 09:32] LABS: URINE APPEARANCE CLEAR; URINE BILIRUBIN NEG (NEG); URINE BLOOD NEG (NEG); URINE COLOR YELLOW; URINE GLUCOSE NEG (NEG); URINE KETONE TRACE (NEG); URINE LEUKOCYTE ESTERASE NEG (NEG); URINE NITRATE NEG (NEG); URINE PH 6.5 (5-8); URINE PROTEIN NEG (NEG); URINE SPECIFIC GRAVITY 1.033 (1.003-1.035)
[2016-12-06 10:05] LABS: AMPHETAMINE NEG (NEG); BARBITURATES NEG (NEG); BENZODIAZEPINES NEG (NEG); COCAINE NEG (NEG); MARIJUANA NEG (NEG); OPIATES NEG (NEG); TRICYCLIC ANTIDEPRESSANTS POS (NEG); U METHADONE NEG (NEG)
== END 2016-12-09 16:28 | disposition home or self-care (01) | DRG 885 ==
LOC: P1S 11-17 00:49
PROVIDERS: Psychiatry & Neurology Psychiatry
DX: F25.0 Schizoaffective disorder, bipolar type (principal)
CPT/HCPCS: 80053; 80307; 81003; 85025; J2060; J3486